=== PATIENT | male | born 1955 | race Caucasian/White ===

== ENCOUNTER 2017-05-27 04:18 | Inpatient (IN) | payer OTHER ==
[~2017-05-27] VITALS: Ht 162.6 cm; Wt 97.1 kg
[~2017-05-27 04:18] MED LIST: DURICEF 500 MG CAPSULE PO; TRAM1TAB98 PO
[2017-05-27] MEDS ORDERED: LOSARTAN-HCTZ1 EACH PO (04:48)
[2017-05-31] MEDS ORDERED: LOSARTAN POTASS50 MG PO (15:56)
[2017-05-31] MEDS ORDERED: POLY119PG PO (15:57)
== END 2017-05-31 18:31 | disposition home health service (06) | DRG 440 ==
LOC: ER 04:18 → MEDI 19:21
PROC: BW21YZZ Computerized Tomography (CT Scan) of Abdomen and Pelvis using Other Contrast (ICD-10-PCS; principal; 2017-05-27)
PROC: BW40ZZZ Ultrasonography of Abdomen (ICD-10-PCS; 2017-05-27)
DX: K85.80 Other acute pancreatitis without necrosis or infection (principal); E11.65 Type 2 diabetes mellitus with hyperglycemia

== ENCOUNTER 2017-06-11 08:01 | Outpatient (CLI) | payer OTHER ==
[~2017-06-11 08:01] MED LIST changes: +LOSARTAN POTASS50 MG PO; +LOSARTAN-HCTZ1 EACH PO; +POLY119PG PO
== END 2017-06-11 08:10 | disposition home or self-care (01) ==
LOC: LAB 08:01
DX: D50.9 Iron deficiency anemia, unspecified (principal); E11.9 Type 2 diabetes mellitus without complications; K85.90 Acute pancreatitis without necrosis or infection, unspecified

== ENCOUNTER 2017-06-14 08:58 | Outpatient (CLI) | payer OTHER | END 2017-06-14 09:11 | disposition home or self-care (01) | LOC: TOM 08:58 | DX: K85.90 Acute pancreatitis without necrosis or infection, unspecified (principal) ==

== ENCOUNTER 2018-07-09 11:55 | Emergency (ER) | payer OTHER ==
[~2018-07-09] VITALS: Ht 162.6 cm; Wt 89.4 kg
== END 2018-07-09 20:37 | disposition home or self-care (01) ==
LOC: ER 11:55
DX: R00.1 Bradycardia, unspecified (principal); K57.90 Diverticulosis of intestine, part unspecified, without perforation or abscess without bleeding; R10.32 Left lower quadrant pain

== ENCOUNTER 2019-01-18 09:27 | Emergency (ER) | payer OTHER ==
[~2019-01-18] VITALS: Ht 162.6 cm; Wt 90.7 kg
[2019-01-18] MEDS ORDERED: HYDROXYCHLOROQ200 MG PO (09:39)
[2019-01-18] MEDS ORDERED: LIPITOR20 MG PO (09:40)
== END 2019-01-18 14:13 | disposition home or self-care (01) ==
LOC: ER 09:27
DX: N20.1 Calculus of ureter (principal); R10.32 Left lower quadrant pain

== ENCOUNTER 2021-10-02 13:45 | Outpatient (CLI) | payer OTHER ==
[~2021-10-02 13:45] MED LIST changes: +HYDROXYCHLOROQ200 MG PO; +LIPITOR20 MG PO
== END 2021-10-02 13:51 | disposition home or self-care (01) ==
LOC: LAB 13:45
PROVIDERS: ATTEND Radiology Diagnostic Radiology
DX: J31.0 Chronic rhinitis (principal)

== ENCOUNTER 2021-10-04 08:06 | Outpatient (CLI) | payer OTHER | END 2021-10-04 08:21 | disposition home or self-care (01) | LOC: TOM 08:06 | PROVIDERS: ATTEND Otolaryngology Otolaryngology/Facial Plastic Surgery | DX: J31.0 Chronic rhinitis (principal); J35.1 Hypertrophy of tonsils ==

== ENCOUNTER 2022-04-21 06:48 | Emergency (ER) | payer OTHER ==
[~2022-04-21] VITALS: Ht 162.6 cm; Wt 93.4 kg
[2022-04-21] MEDS ORDERED: RAYOS2 MG PO (07:19)
[2022-04-21] MEDS ORDERED: PROTONIX40 MG PO (07:20)
[2022-04-21] MEDS ORDERED: AVALIDE 300-121 EACH PO (07:20)
== END 2022-04-21 13:59 ==
LOC: ER 06:48
DX: I88.9 Nonspecific lymphadenitis, unspecified (principal); L93.0 Discoid lupus erythematosus; I10 Essential (primary) hypertension; Z88.8 Allergy status to other drugs, medicaments and biological substances; Z91.013 Allergy to seafood

== ENCOUNTER 2022-07-09 10:44 | Outpatient (CLI) | payer OTHER ==
[~2022-07-09 10:44] MED LIST changes: +AVALIDE 300-121 EACH PO; +PROTONIX40 MG PO; +RAYOS2 MG PO
== END 2022-07-13 10:47 | disposition home or self-care (01) ==
LOC: SONOGRAMA 10:44
PROVIDERS: ATTEND Pathology Anatomic Pathology
DX: R59.0 Localized enlarged lymph nodes (principal)